=== PATIENT | female | born 1980 | race Caucasian/White ===

== ENCOUNTER 2018-06-01 09:29 | Emergency (ER) | payer BC, OTHER ==
[2018-06-01] MEDS ORDERED: Ketorolac Tromethamine 30 MG/ML VIAL ONE (09:59)
[2018-06-01 10:15] LABS: BHCG - Serum Negative (NEGATIVE); Pregs Control Background? CLEAR/WHITE (CLR/WHITE); Pregs Control Bar Appear? YES (CONTROL BAR)
[2018-06-01 10:18] LABS: #Basophils 0.1 thou/uL (0.0-0.2); #Eosinphils 0.2 thou/uL (0.0-0.7); #Lymphocytes 2.2 thou/uL (1.20-3.40); #Monocytes 0.6 thou/uL (0.11-0.59); #Neutrophils 6.9 thou/uL (1.40-6.50); %Eosinophils 1.6 % (0.0-10.0); %Lymphocytes 21.8 % (21.0-51.0); %Monocytes 5.8 % (0.0-10.0); %Neutrophils 69.8 % (42.0-75.0); Mean Corpuscular HGB CONC 34.1 g/dL (32.0-36.0); Mean Corpuscular Hemoglobin 28.8 pg (27.0-31.0); Mean Corpuscular Volume 84.4 fL (78.0-98.0); Mean Platelet Volume 8.3 fL (7.4-10.4); Platelet Count 230 thou/uL (130-400); RBC Distribution Width 11.3 % (11.5-14.5); Red Blood Cell (RBC) Count 4.86 mill/uL (4.20-5.40); White Blood Cell (WBC) Count 9.9 thou/uL (4.8-10.8)
[2018-06-01 10:23] LABS: ALT (SGPT) 15 U/L (8-55); AST (SGOT) 8 U/L (5-34); Alkaline Phosphatase 59 U/L (40-150); Anion Gap 10 mmol/L (10-20); BUN (Urea Nitrogen) 11 mg/dL (7.0-18.7); Bilirubin, Total 0.4 mg/dL (0.2-1.2); Calc. Creatinine Clearance 0 mL/min (70-130); Calcium 8.8 mg/dL (7.8-10.44); Carbon Dioxide 25 mmol/L (22-29); Chloride 109 mmol/L (98-107); Estimated GFR-MDRD 89; Globulin 2.9 g/dL (2.4-3.5); Glucose 94 mg/dL (70-105); Potassium 3.9 mmol/L (3.5-5.1); Protein, Total 6.9 g/dL (6.0-8.3); Sodium 140 mmol/L (136-145)
[2018-06-01 10:26] LABS: MONO NEGATIVE CONTROL ZONE White (Negative) (White); MONO POSITIVE CONTROL Pink Line (Positive) (PINK/RED); Mononucleosis NEGATIVE (NEGATIVE)
[2018-06-01] MEDS ORDERED: Diazepam 5 MG TAB ONE (10:58)
== END 2018-06-01 11:56 | disposition home or self-care (01) ==
LOC: SCSER 09:29
DX: M62.838 Other muscle spasm (principal); M54.2 Cervicalgia
CPT/HCPCS: 80053; 84703; 85025; 86308; 87081; 87430; 96361; 96374; J1885

== ENCOUNTER 2018-07-22 13:22 | Emergency (ER) | payer OTHER ==
[2018-07-22] MEDS ORDERED: Sodium Chloride For Inhalation 0.9% 3 ML NEB ONE (13:56)
[2018-07-22] MEDS ORDERED: predniSONE 20 MG TAB ONE (14:05)
--- NOTE | 2018-07-22 15:36 | RAD ---
FRONTAL RADIOGRAPH CHEST: DATE: 07/22/18. COMPARISON: 03/07/12. HISTORY: Cough with shortness of breath. FINDINGS: Heart and mediastinal contours are stable. No pneumothorax or pleural fluid. No focal consolidation or alveolar edema. IMPRESSION: Stable appearance of the chest - no acute findings. POS: [facility]
== END 2018-07-22 14:52 | disposition home or self-care (01) ==
LOC: SCSER 13:22
DX: J20.9 Acute bronchitis, unspecified (principal); F17.210 Nicotine dependence, cigarettes, uncomplicated
CPT/HCPCS: 71045; 94640; J7506; J7620

== ENCOUNTER 2018-11-12 10:27 | Emergency (ER) | payer OTHER ==
[2018-11-12] MEDS ORDERED: Ketorolac Tromethamine 30 MG/ML VIAL ONE (10:57)
--- NOTE | 2018-11-12 13:14 | RAD ---
PA AND LATERAL CHEST XRAY: DATE: 11/12/2018. HISTORY: Cough for 3-4 days. Subjective fever. COMPARISON: 07/22/2018. FINDINGS: Cardiac silhouette is borderline enlarged. The pulmonary vasculature is within normal limits. There are increased interstitial densities at the right lung base more prominent than on the prior exam. No focal consolidation or pleural fluid is seen. Findings could be related to atelectasis, although developing infectious process cannot be excluded. Lungs are otherwise clear. No pleural effusion is seen. The left lateral costophrenic angle is partially excluded from view. Osseous structures are intact. IMPRESSION: Increased linear and interstitial densities right lung base which could be related to atelectasis, bu t developing area of pneumonitis could not be excluded. Followup examination is suggested as clinica lly indicated. POS: [facility]
== END 2018-11-12 11:25 | disposition home or self-care (01) ==
LOC: SCSER 10:27
DX: J06.9 Acute upper respiratory infection, unspecified (principal); F17.210 Nicotine dependence, cigarettes, uncomplicated
CPT/HCPCS: 71046; 96372; J1885

== ENCOUNTER 2020-04-01 09:48 | Inpatient (IN) | payer OTHER ==
[~2020-04-01 09:48] MED LIST: Bupivacaine/Epinephrine 0.25% 30 ML VIAL ONE
[2020-04-01 10:23] VITALS: BMI 43.8
[2020-04-01] MEDS ORDERED: hydrALAZINE 20 MG/ML VIAL SLOW IVP PRN ×2 (10:56→18:21)
[2020-04-01] MEDS ORDERED: Ibuprofen 800 MG TAB PO PRN (10:56)
[2020-04-01] MEDS ORDERED: Methylergonovine 0.2 MG/ML VIAL IM PRN ×2 (10:56→18:21)
[2020-04-01] MEDS ORDERED: Lidocaine 1% (PF) 30 ML VIAL SC PRN (10:56)
[2020-04-01] MEDS ORDERED: Misoprostol 200 MCG TAB PR PRN (10:56)
[2020-04-01] MEDS ORDERED: HYDROcodone/Acetaminophen 5/325 mg Tablet PO PRN ×3 (10:56→18:21)
[2020-04-01] MEDS ORDERED: Ondansetron PF 4 MG/2 ML Vial IVP PRN ×2 (10:56→12:55)
[2020-04-01] MEDS ORDERED: Butorphanol Tartrate 1 MG/ML VIAL SLOW IVP PRN (10:56)
[2020-04-01] MEDS ORDERED: Diphenoxylate HCl/Atropine Tablet PO PRN ×2 (10:56)
[2020-04-01] MEDS ORDERED: Carboprost 250 MCG/ML AMP IM PRN (10:56)
[2020-04-01] MEDS ORDERED: Promethazine HCl 25 MG/ML VIAL IM PRN ×2 (10:56→12:55)
[2020-04-01] MEDS: Lactated Ringer's 1,000 ML IV SCH ×2 (11:00→13:30)
[2020-04-01] MEDS ORDERED: NS w/ Oxytocin 10 units 500 ML IV SCH (11:00)
[2020-04-01 11:27] LABS: Mean Corpuscular Hemoglobin 29.8 pg (27.0-31.0); Mean Corpuscular Volume 90.4 fL (78.0-98.0); Mean Platelet Volume 7.6 fL (7.4-10.4); Platelet Count 195 thou/uL (130-400); RBC Distribution Width 13.2 % (11.5-14.5); Red Blood Cell (RBC) Count 4.03 mill/uL (4.20-5.40); White Blood Cell (WBC) Count 14.1 thou/uL (4.8-10.8)
[2020-04-01] MEDS ORDERED: Fentanyl 4 mcg/Bup 0.1% Cadd 100 ML ONE (11:38)
[2020-04-01 12:04] LABS: HBSAg Index 0.13 S/CO (0-0.99); Hep B Surf Ag Non-Reactive S/CO (NonReactive)
[2020-04-01 12:05] LABS: Syphilis Antibody Nonreactive (Nonreactive); Syphilis Antibody Index 0.02 S/CO (<1.00 Non-Reactive)
[2020-04-01] MEDS ORDERED: diphenhydrAMINE 50 MG/ML VIAL IVP PRN (12:55)
[2020-04-01] MEDS ORDERED: Acetaminophen 325 MG TAB PO PRN (12:55)
[2020-04-01] MEDS ORDERED: Lactated Ringer's 500 ML IV PRN (12:55)
[2020-04-01] MEDS ORDERED: Naloxone HCl 0.4 mg/ml Vial IVP PRN ×2 (12:55)
[2020-04-01] MEDS ORDERED: EPHEDRINE 25 MG/5 ML SYRINGE SLOW IVP PRN (12:55)
[2020-04-01] MEDS ORDERED: Communication Order-Pharmacy FS SCH (13:00)
[2020-04-01] MEDS ORDERED: Fentanyl 4 mcg/Bupivacaine 0.1% Cassette 100 ML EPIDURAL SCH (13:00)
[2020-04-01] MEDS ORDERED: NS / Oxytocin 40 units/1000ml 1,000 ML ONE (14:49)
[2020-04-01] MEDS ORDERED: Lidocaine 1% (PF) 30 ML VIAL ONE (14:49)
[2020-04-01] MEDS: NS / Oxytocin 40 units/1000ml 1,000 ML IV PRN ×2 (15:17→17:07)
--- NOTE | 2020-04-01 16:39 | PDOC.LDHP ---
Labor and Delivery H&P Chief complaint: contractions HPI: Patient was woken up at 0400 with some back pain and mild cramping. It progressed to getting stronger so she decided to come to the hospital. Current gestational age (weeks): 39 Due date: 04/02/20 Grav: 5 Para: 1 Current medications: pre-ric vitamins Allergies/Adverse Reactions: Allergies Allergy/AdvReac Type Severity Reaction Status Date / Time No Known Allergies Allergy Verified 01/31/20 13:47 Social history: none - Physical Exam Vital signs reviewed and normal: yes General: breathing through contractions Lungs: nonlabored breathing Abdomen: gravid FHT: category 1 - Vaginal Exam cm dilated: 6 Effacement: 100% Station: -1 - OB Labs Blood type: AB RH: positive Antibody Screen: negative HIV: negative RPR: negative HEPSAg: negative 1 hour GCT: negative GBS: negative Urine drug screen: negative Rubella: immune - Assessment L&D Assessment: term patient in labor - Plan Plan: admit to L&D, anesthesia consult for pain management
[2020-04-01] MEDS ORDERED: Milk Of Magnesia 30 ML UDCUP PO PRN (18:21)
[2020-04-01] MEDS ORDERED: NS / Oxytocin 40 units/1000ml 1,000 ML IV SCH (18:21)
[2020-04-01] MEDS ORDERED: Benzocaine-Menthol 82.5 ML CAN TOP PRN (18:21)
[2020-04-01] MEDS ORDERED: Bisacodyl 10 MG SUPP PR PRN (18:21)
[2020-04-01] MEDS ORDERED: Misoprostol 200 MCG TAB VAG PRN (18:21)
[2020-04-01] MEDS: Ferrous Sulfate 325 MG TAB PO SCH (19:24)
[2020-04-01] MEDS: Docusate Calcium (SURFAK) 240 MG CAP PO SCH (20:42)
[2020-04-01] MEDS: Ibuprofen 800 MG TAB PO SCH (20:42)
[2020-04-02] MEDS: HYDROcodone/Acetaminophen 5/325 mg Tablet PO PRN ×2 (01:57→11:26)
[2020-04-02] MEDS: Ibuprofen 800 MG TAB PO SCH ×2 (04:25→14:40)
[2020-04-02] MEDS ORDERED: Prenatal Vitamin 1 TAB PO SCH (09:00)
[2020-04-02] MEDS ORDERED: Adacel (T-DAP) 0.5 ML SYRINGE IM ONE (09:00)
[2020-04-02] MEDS: Docusate Calcium (SURFAK) 240 MG CAP PO SCH (09:01)
[2020-04-02] MEDS: Ferrous Sulfate 325 MG TAB PO SCH ×2 (09:02→16:23)
[2020-04-02 11:52] VITALS: BP 128/71; TEMP 98.6
--- NOTE | 2020-04-02 12:49 | PDOC.OPDEL ---
OB Operative/Delivery Note Delivery Dr/Surgeon: Light. Chung Pre-Delivery Diagnosis: active labor Procedure/Post Delivery Dx: spontaneous vaginal delivery Weeks gestation: 39 Anesthesia: epidural - Findings A Sex: female Weight: 7 lb 11 oz - 1 min: 8 - 5 min: 9 - Additional Findings/Plan Placenta delivered: spontaneous Repaired Obstetrical Laceration: none Estimated blood loss: 150mL Post delivery plan: routine recovery
== END 2020-04-02 18:25 | disposition home or self-care (01) | DRG 807 ==
LOC: L&D/OP 09:48 → L&D-LIB 14:59 → 3SW 20:33
PROVIDERS: ADMIT Obstetrics & Gynecology; ATTEND Obstetrics & Gynecology
PROC: 10E0XZZ Delivery of Products of Conception, External Approach (ICD-10-PCS; principal; 2020-04-01)
PROC: 10907ZC Drainage of Amniotic Fluid, Therapeutic from Products of Conception, Via Natural or Artificial Opening (ICD-10-PCS; 2020-04-01)
DX: O80 Encounter for full-term uncomplicated delivery (principal); Z37.0 Single live birth; Z3A.39 39 weeks gestation of pregnancy
CPT/HCPCS: 36415; 51702; 85027; 86780; 86850; 86900; 86901; 87340; 99285; J2001

== ENCOUNTER 2022-07-08 09:04 | Outpatient (CLI) | payer OTHER | END 2022-07-08 09:05 | disposition home or self-care (01) | LOC: BICMAMMO 09:04 | PROVIDERS: ATTEND Student in an Organized Health Care Education/Training Program | DX: Z12.31 Encounter for screening mammogram for malignant neoplasm of breast (principal); Z80.3 Family history of malignant neoplasm of breast | CPT/HCPCS: 77067 ==